=== PATIENT | female | born 1935 | race Caucasian/White ===

== ENCOUNTER → 2016-07-24 | Outpatient (CLI) | payer MEDICARE, OTHER ==
[~2016-07-24] MED LIST: ALLE12TA2 PO; CELE200 PO; CELE200C PO; HYDR-3288 PO; LEVO.05 PO; LEVO.125 PO; NIFE1TAB86 PO; OYST500T77 PO; PROC60TA PO; VESI5TAB PO; VITA400C28 PO
[2016-07-24 10:29] LABS: AUTOMATED NEUTROPHIL # 4.9 TH/MM3 (1.8-7.7); BASOPHIL % 0.5 % (0.0-2.0); EOSINOPHIL # 0.3 TH/MM3 (0-0.4); EOSINOPHIL % 3.1 % (0.0-4.0); HEMO FLAGS DIFF FINAL; LYMPHOCYTE # 2.1 TH/MM3 (1.0-4.8); MEAN CELL VOLUME 94.4 FL (80.0-100.0); MEAN CORPUSCULAR HEMOGLOBIN 32.6 PG (27.0-34.0); MEAN CORPUSCULAR HGB CONC 34.6 % (32.0-36.0); MONO % 9.5 % (0.0-8.0); NEUT % 60.9 % (16.0-70.0); PLATELET COUNT 245 TH/MM3 (150-450); RED BLOOD COUNT 4.45 MIL/MM3 (4.00-5.30); RED CELL DISTRIBUTION WIDTH 13.1 % (11.6-17.2); WHITE BLOOD COUNT 8.1 TH/MM3 (4.0-11.0)
--- NOTE | 2016-07-25 06:23 | EKG ---
Date Performed: 07/24/2016 Time Performed: 10:08:38 PTAGE: 81 years EKG: Sinus rhythm ABNORMAL ECG Compared to prior tracing no significant change DOCTOR: Joaquín Mcdaniel Interpretating Date/Time 07/25/2016 06:22:32
== END ==
LOC: CPRE 09:40
PROVIDERS: ATTEND Orthopaedic Surgery Orthopaedic Surgery of the Spine
DX: Z01.810 Encounter for preprocedural cardiovascular examination (principal); Z01.812 Encounter for preprocedural laboratory examination; M48.06 Spinal stenosis, lumbar region; R94.31 Abnormal electrocardiogram [ECG] [EKG]
CPT/HCPCS: 36415; 85025; 93005

== ENCOUNTER → 2016-07-31 | Day surgery (SDC) | payer MEDICARE, OTHER ==
[~2016-07-31] VITALS: Ht 157.5 cm; Wt 54.5 kg
[~2016-07-31] MED LIST changes: +ACETAMINOPHEN 1000 MG/100 ML VIAL IV ONE; +ACETAMINOPHEN/HYDROcodone 325 MG/7.5 MG TAB PO PRN; +BUPIVACAINE/EPINEPHRINE 0.25% 50 ML VIAL ONE; -CELE200 PO; +CHLORHEXIDINE GLUCONATE 2 % 1 PACK (2 CLOTHS) TOPICAL PRN; +CLINDAMYCIN PHOS 600 MG/4 ML VIAL ONE; +DO NOT ADM ANY ANTICOAGULANT DRUGS PRN; +GELATIN 12 MM/7 MM FOAM ONE; +GENTAMICIN SULFATE 80 MG/2 ML VIAL ONE; +INSULIN HUMAN REGULAR 1,000 UNITS/10 ML VIAL SQ PRN; +KETOROLAC TROMETHAMINE 60 MG/2 ML (IM) VIAL IM ONE; +LACTATED RINGER'S 1000 ML INJ 1,000 ML IV ONE; +LACTATED RINGER'S 1000 ML INJ 1,000 ML IV SCH; +LACTATED RINGER'S 1000 ML IV PRN; -LEVO.125 PO; +METOPROLOL TARTRATE 25 MG TAB PO PRN; +MIDAZOLAM HCL 2 MG/2 ML VIAL ONE; +MORPHINE SULFATE 4 MG/ML INJ IV PUSH PRN; +NEOSTIGMINE 3 MG/3 ML SYR IV ONE; +ONDANSETRON HCL 4 MG/2 ML VIAL IV PUSH ONE; -OYST500T77 PO; +PHENYLEPH/NS 1000 MCG/10 ML SYR IV ONE; +POVIDONE IODINE 5% (ANTISEPSIS KIT) 4 APPLICATIONS EACH NARE PRN; +POVIDONE IODINE 7.5% SCRUB 118 ML BOTTLE TOPICAL SCH; -PROC60TA PO; +PROPOFOL 200 MG/20 ML AMP IV ONE; +SODIUM CHLORID 0.9% 500 ML IV PRN; +SODIUM CHLORIDE 10 ML FLUSH BID IV FLUSH SCH; +SODIUM CHLORIDE 10 ML FLUSH PRN IV FLUSH; -VITA400C28 PO; +ePHEDrine/NS 25 MG/5 ML SYR IV ONE; +fentaNYL CITRATE 250 MCG/5 ML AMP ONE
--- NOTE | 2016-07-31 05:21 | MH ---
cc: MARLEY ZARATE DATE OF ADMISSION: 07/31/2016 ADMITTING DIAGNOSIS Lumbar spinal stenosis. HISTORY This patient is an 81-year-old female with significant back, right hip and leg pain. Investigative studies shows evidence of lateral recess stenosis at L3-4 and L4-5. The patient presents with significant right gluteus weakness. Despite conservative care the patient is painful and symptomatic. She presents for surgical treatment. PAST MEDICAL HISTORY, SOCIAL HISTORY, FAMILY HISTORY, REVIEW OF SYSTEMS See attached notes. PHYSICAL EXAMINATION GENERAL: An 81-year-old female in moderate distress with her back, right hip and leg. HEENT: Normocephalic, atraumatic. Pupils equal, round, reactive to light and accommodation. Extraocular motions intact. NECK: Supple. CHEST: Clear. HEART: Regular rate and rhythm. ABDOMEN: Soft, nontender with normoactive bowel sounds. MUSCULOSKELETAL EXAMINATION: Thoracolumbar spine with restricted motion, pain with range of motion. [id number] is positive on the right, negative on the left. Motor examination shows significant right gluteus weakness and some extensor hallucis longus weakness. IMPRESSION 1. Lumbar spinal stenosis L3-4 and L4-5. 2. Right L5 radiculopathy. PLAN Lumbar laminectomy from the right at L3-4 and L4-5, lateral recess decompression, use of dilation port and microscope. CONSENT There are risks with surgery including infection, bleeding, loss of motion, continued pain, need for further surgery, neurologic and vascular injury. The patient understands these issues and wishes to press on with surgery as outlined above. MD SHANEKA Chaudhary/GERALD /10:46 PM /5:15 AM
[2016-07-31 08:50] VITALS: BP 171/95; PULSE 95; RESP 18; TEMP 98; O2SAT 95
--- NOTE | 2016-07-31 12:42 | PD.OP ---
cc: Angel Leal. Operative Report Date of Surgery: July 31, 2016 Preoperative Diagnosis: Lumbar spinal stenosis L3 4 and L4 5. Right lumbosacral radiculopathy Postoperative Diagnosis: Same Procedure: Lumbar laminectomy from the right L3, L4 with partial bilateral laminectomy and right lateral recess decompression. Lumbar laminectomy from the right L4, L5 with partial bilateral laminectomy and right lateral recess decompression. Use of dilation port and microscope Anesthesia: Gen. Surgeon: Angel Leal Nursing Clinical Director(s): ABDOULAYE Mathias Operation and Findings: EBL: 50 cc INDICATION: Patient is an 81-year-old female with significant weakness into the right hip and leg consistent with a lumbar radiculopathy. The patient has a high-grade spinal stenosis at L3 4 with significant lateral recess stenosis to the right. A similar finding is seen at the L4 5 level but not as severe as L3 4. The patient's developing a significant Trendelenburg gait felt to be consistent with a L4 and L5 radiculopathy. The patient has weakness extending into the leg. Despite conservative care, she is painful symptomatic and having progressive weakness. She now presents for surgical treatment. NOTE: Lucinda Mathias PA-C was present for the entire surgical procedure as my news production assistant. In my medical opinion her skill and care was necessary for the proper management of this patient. PROCEDURE: The patient was brought to the operating room and anesthetized in the supine position. The patient was rolled to a prone position on a Ben frame on a Eric table. All pressure points were protected in the back was scrubbed with alcohol followed by Hibiclens followed by ChloraPrep and draped sterilely. A timeout was done and antibiotics were given. AP and lateral radiographic images were used to identify the proper levels and perform skin markings. We started from the right side at the L3 4 level. A paramedian incision was made and an off-midline fascial incision was made. A dilating system was placed down to the interlaminar space and held provisionally to the side of the table. The microscope was brought into the field. A high-speed bur under the microscope was used to perform a partial bilateral laminectomy from that side. A lateral recess decompression predominantly on the right side was accomplished using straight and angled Kerrison punches. A partial medial facetectomy was accomplished. The crossing and exiting nerve roots were completely decompressed. We moved to the L4 5 level. A separate fascial incision was made. A dilating system was placed down to the interlaminar space and held provisionally to the side of the table. The microscope was brought back into the field. A high- speed bur under the microscope was used to perform a partial bilateral laminectomy from that side. A lateral recess decompression predominantly on the right side was accomplished using straight and angled Kerrison punches. A partial medial facetectomy was accomplished. The crossing and exiting nerve roots were completely decompressed. The wound was irrigated copiously. Hemostasis was controlled. The deep fascia was approximated with interrupted 0 Vicryl suture subcutaneous suture with 2-0 Vicryl suture and skin with running intradermal 3-0 Vicryl followed by Dermabond. A field block with local anesthesia was utilized. A sterile dressing was applied. The sponge count and needle counts and instrument counts were all correct. The patient tolerated the procedure well as taken to the recovery room in satisfactory condition. FINDINGS: There was evidence of a very high-grade stenosis at the L3 4 level and moderate to severe at the L4 5 level. At the end of the procedure, the crossing and exiting nerve roots at each level were completely decompressed. There was no leak of cerebral spinal fluid. No complication was appreciated. Angel Leal MD July 31, 2016 12:42
--- NOTE | 2016-07-31 13:36 | RADRPT ---
EXAM DATE/TIME: 07/31/2016 12:05 [facility] COMPARISON: FLUOROSCOPY PORTABLE UP TO 1HR, July 31, 2016, 0:00. INDICATIONS : L3-4, 4-5 laminectomy. MEDICAL HISTORY : None. SURGICAL HISTORY : None. ENCOUNTER: Initial ACUITY: 1 day PAIN SCORE: Non-responsive. LOCATION: Lumbar spine. FINDINGS: Single lateral views of the spine demonstrate localization hardware initially at the 3-4 level than o n the followup film at the 45 level. CONCLUSION: 1. Level localized at L3/4 and L4/5 as above. Lg Bal MD on July 31, 2016 at 13:33 Board Certified Radiologist. This report was verified electronically.
[2016-07-31 15:20] VITALS: BP 129/69; PULSE 86; RESP 16; TEMP 97.6; O2SAT 96
== END | disposition home or self-care (01) ==
LOC: HSDC 08:14
PROVIDERS: ATTEND Orthopaedic Surgery Orthopaedic Surgery of the Spine
DX: M48.06 Spinal stenosis, lumbar region (principal); M54.17 Radiculopathy, lumbosacral region; I10 Essential (primary) hypertension; E03.9 Hypothyroidism, unspecified; M16.11 Unilateral primary osteoarthritis, right hip; M81.0 Age-related osteoporosis without current pathological fracture; R26.89 Other abnormalities of gait and mobility; Z88.0 Allergy status to penicillin
CPT/HCPCS: 63047; 63048; 72020; 76000; J0131; J1580; J1885; J2250; J2370; J2405; J2710; J3010; J7120